=== PATIENT | female | born 1960 | race Caucasian/White ===

== ENCOUNTER 2021-07-07 22:02 | Emergency (ER) | payer OTHER ==
[2021-07-07 23:14] LABS: HEMOGLOBIN 13.5 gm/dl (12.3-15.3); RED BLOOD COUNT 4.8 M/UL (4.00-5.10); WHITE BLOOD COUNT 7.5 K/UL (4.5-11.0)
[2021-07-07 23:33] LABS: BUN/CREATININE RATIO 34 (0-10)
== END 2021-07-08 06:15 | disposition home or self-care (01) ==
LOC: ER1 22:02
PROVIDERS: Emergency Medicine
DX: R10.31 Right lower quadrant pain (principal); Z88.2 Allergy status to sulfonamides; I10 Essential (primary) hypertension
CPT/HCPCS: 80053; 81001; 83690; 85025; 96374; 99284; J1885; Q9967

== ENCOUNTER → 2021-08-19 | Day surgery (SDC) | payer OTHER ==
[~2021-08-19] MED LIST: CRESTOR10 MG PO; GLIPIZIDE5 MG PO; LEVEMIR 10100 UNITS/ INJ; LEVOTHYROXINE125 MC1 PO; LISINOPRIL10 MG PO; METFORMIN HCL1000 MG PO; PROTONIX40 M1 PO; SPIRONOLACTONE25 MG PO; STEGLATRO5 MG PO; XARELTO20 MG PO
== END | disposition home or self-care (01) ==
LOC: OR 06:33
DX: Z12.11 Encounter for screening for malignant neoplasm of colon (principal); D12.3 Benign neoplasm of transverse colon; I10 Essential (primary) hypertension; E66.01 Morbid (severe) obesity due to excess calories; E11.9 Type 2 diabetes mellitus without complications; E78.00 Pure hypercholesterolemia, unspecified; K21.9 Gastro-esophageal reflux disease without esophagitis; K76.0 Fatty (change of) liver, not elsewhere classified; E03.9 Hypothyroidism, unspecified; E88.81 Metabolic syndrome and other insulin resistance; Z88.2 Allergy status to sulfonamides; Z88.8 Allergy status to other drugs, medicaments and biological substances; Z79.01 Long term (current) use of anticoagulants; Z79.84 Long term (current) use of oral hypoglycemic drugs; Z79.4 Long term (current) use of insulin; Z68.42 Body mass index [BMI] 45.0-49.9, adult; Z20.822 Contact with and (suspected) exposure to COVID-19
CPT/HCPCS: 82962; J2704; J7040; U0002

== ENCOUNTER → 2021-09-17 | Outpatient (CLI) | payer OTHER | LOC: MAMO 09:48 | DX: Z12.31 Encounter for screening mammogram for malignant neoplasm of breast (principal) | CPT/HCPCS: 77063; 77067 ==